=== PATIENT | male | born 1985 ===

== ENCOUNTER 2020-03-12 17:28 | Outpatient (REF) | payer MEDICAID, SELFPAY ==
[2020-03-16 06:44] LABS: Codeine Negative ng/mL (Cutoff: 25); Dihydrocodeine Negative ng/mL (Cutoff: 25); Hydrocodone Negative ng/mL (Cutoff: 25); Hydromorphone Negative ng/mL (Cutoff: 25); Morphine Negative ng/mL (Cutoff: 25); Naloxone 22829 ng/mL (Cutoff: 25); Norhydrocodone Negative ng/mL (Cutoff: 25); Noroxycodone Negative ng/mL (Cutoff: 25); Noroxymorphone 26 ng/mL (Cutoff: 25); Opiates Interpretation Positive.
== END 2020-03-12 17:48 ==
LOC: NCHCN 17:28
PROVIDERS: PCP Nurse Practitioner Family; Visit Provider Nurse Practitioner Family
DX: F19.21 Other psychoactive substance dependence, in remission (principal); Z51.81 Encounter for therapeutic drug level monitoring
CPT/HCPCS: 80361